=== PATIENT | female | born 1965 | race Caucasian/White ===

== ENCOUNTER 2022-02-05 10:41 | Day surgery (SDC) | payer OTHER ==
[~2022-02-05 10:41] MED LIST: CEFAZOLIN 2 GM-D5W BAG** 2 GM/50 ML ML IV ONE; CEFAZOLIN 2 GM-D5W BAG** 2 GM/50 ML ML IV SCH; Lactated Ringers 1,000 ML IV ONE; Lactated Ringers 1,000 ML IV SCH; XYLOCAINE 1% HCL 20 ML MDV ONE
[2022-02-05] MEDS ORDERED: BRIDION 200MG/2ML IV ONE (12:01)
[2022-02-05] MEDS ORDERED: Xylocaine-Mpf 2% 5 Ml Vial ONE (12:01)
[2022-02-05] MEDS ORDERED: SUBLIMAZE 100 MCG/2 ML ONE ×3 (12:01→15:09)
[2022-02-05] MEDS ORDERED: Zemuron 100 MG/10 ML ONE (12:01)
[2022-02-05] MEDS ORDERED: Decadron 4 MG INJ ONE (12:01)
[2022-02-05] MEDS ORDERED: DIPRIVAN 200 MG/20 ML IV ONE (12:01)
[2022-02-05] MEDS ORDERED: Versed 2 MG/2 ML Injection IV PRN (12:03)
[2022-02-05] MEDS ORDERED: TORAdol 30 mg Injection ONE (12:40)
--- NOTE | 2022-02-05 16:31 | XRAY ---
Indication: Right foot 1st MTP arthrodesis, 2nd-5th hammertoe, 2nd Kristy osteotomy, and tailors bunion correction. Intraoperative fluoroscopy provided for 3 minutes 28 seconds. 15 digital spot images submitted for interpretation ultimately demonstrates 1st MTP fusion, 2nd metatarsal head Kristy osteotomy, fusion 2nd-4th phalanges/MTPs, and osteotomy distal shaft 5th metatarsal all with intact fixation hardware. Correlate with intraoperative findings/report.
--- NOTE | 2022-02-05 16:37 | XRAY ---
3 minutes and 28 seconds of fluoroscopy was used in surgery for a right 1st MPJ arthrodesis, 2nd-5th hammertoe, nella osteotomy 2nd, and tailors bunion correction.
[2022-02-05 18:02] VITALS: BP 145/84; PULSE 79; O2SAT 93
--- NOTE | 2022-02-06 08:50 | OP ---
SURGERY DATE/TIME: 02/05/2022 1224 PREOPERATIVE DIAGNOSES: 1) Osteoarthritis first metatarsophalangeal joint right foot. 2) Hallux abductovalgus right foot. 3) Hammer toe to digits 2, 3, 4 and 5. 4) Tailor's bunion right foot. 5) Ingrown toenail left hallux. POSTOPERATIVE DIAGNOSES: 1) Osteoarthritis first metatarsophalangeal joint right foot. 2) Hallux abductovalgus right foot. 3) Hammer toe to digits 2, 3, 4 and 5. 4) Tailor's bunion right foot. 5) Ingrown toenail left hallux. PROCEDURE: 1) First metatarsophalangeal joint arthrodesis. 2) Kristy osteotomy second metatarsal. 3) Hammer toe correction to digits 2, 3 and 4. 4) Derotational arthroplasty of fifth digit. 5) Tailor's bunion correction fifth metatarsal. SURGEON: Simone Torres DPM. SIZE ROLLER OPERATOR: None. ANESTHESIA: General plus postoperative local block. See injectables for details. HEMOSTASIS: Ankle tourniquet set to 250 mm of Mercury for 120 total tourniquet minutes. ESTIMATED BLOOD LOSS: Less than 20 cc. INJECTABLES: 30 cc total of a 1:1 mixture of 1% lidocaine plain and 0.5% bupivacaine plain injected in ankle block-type fashion preoperatively. INDICATION FOR SURGERY: Lacie is a very pleasant 56-year-old female who presented to my office with significant deformity to the right foot. The patient did have surgical interventions to the left foot which was relatively successful in alleviating her pain. However, there is a significant amount of deformity in her right foot. Following the procedure, she was discouraged from proceeding with surgical intervention due to the deformity that she had despite the pain relief. However at this time, she presented to my office with significant amount of pain to the right foot with ambulation. In particular she had a significant amount of pain due to the crossover deformity and bunion of her first and second digit as well as the hammer toes of digits 3, 4 and 5 with ambulation and shoe gear. She indicates with the tailor's bunion there is significant amount of pain with ambulation and shoe gear choices that she makes. At this time, she indicates that she has tried just about everything and has seen multiple providers for this issue with no consistent relief. The patient at this time is willing to proceed with surgical intervention. No guarantees were provided as to the outcome of surgical intervention. The goal for the procedure is not necessarily cosmetic, it is pain relief and that is the goal of the procedure. The patient understands all risks, benefits and complications of the procedure including but not limited to delayed skin healing, nonskin healing, possibility of nonbone healing and delayed bone healing, potential for need for further surgical intervention at a later date or problem with hardware. The patient understands all of these risks and wishes to proceed at this time. It is with that we proceed. DESCRIPTION OF PROCEDURE AND FINDINGS: The patient was brought into the OR and placed on the OR table in the supine position. At this time general anesthesia was administered until the patient was sedated. A well-padded ankle tourniquet was applied to the patient's right lower extremity. Following this, the right foot was prepped and draped in the typical sterile fashion. Attention then was directed to the dorsal aspect of the first metatarsophalangeal joint. An Esmarch was utilized to superficially exsanguinate the blood vessels at the surface layer of the skin. The tourniquet was set to 250 mm of Mercury. At this time, a linear incision made just medial to the extensor hallucis longus tendon which was carried down utilizing a combination of blunt and sharp dissection dissecting out the extensor hallucis longus and brevis and retracting them out of the way. The capsule then was identified at the first metatarsophalangeal joint which was then incised and the joint was inspected. At this time, a significant amount of osteoarthritis was identified and a K-wire was then introduced along the dorsal longitudinal aspect of the first metatarsophalangeal joint. Cup and conical reamers were utilized to denude the cartilage and the subchondral plate. Copious amounts of sterile saline were utilized to flush the site. Subchondral plate was fenestrated utilizing 2-0 drill bit. Following this, interfragmentary screw was placed across the fusion site as well as a dorsal locking plate this was applied utilizing power and recovery superintendent's recommendation and securing distal holes first eccentric and then filling with lockers and nonlockers in combination this was checked under fluoroscopic guidance and deemed to be in adequate position. Attention then was directed to the dorsal aspect of the second metatarsal where a linear incision was made from 2 cm above the second metatarsal down to the second digit proximal interphalangeal joint. Both joints were resected out and a Kristy osteotomy was performed utilizing a sagittal saw. A displacement Kristy osteotomy was performed displacing the metatarsal head medially in order to bring the second digit into a more normal alignment and rectus in position relative to the longitudinal axis of the second metatarsal this was pinned and two screws were utilized for fixation from this standpoint. A rongeur was utilized to take the overhang of the metatarsal and the proximal interphalangeal joint was resected out and a 2.5 variable compression pitch (VPC) screw 30 mm in length was placed intramedullary in this digit. Following this, this was checked under fluoroscopic guidance and deemed to be in an adequate position. The extensor tendon was lengthened in order to prevent a floating toe. Following this, a K-wire was drilled across the metatarsal head in order to secure the soft tissue position for the digit. Following this, transverse incisions were made over the proximal interphalangeal joints of both digits 3 and 4 where a sagittal saw was utilized to remove the joint surface at these joints. Once again, a 2.5 mm 30 x 30 VPC screw and 28 mm screw were placed intramedullary into digits 3 and 4 respectively this was checked under fluoroscopy and deemed to be once again adequate. K-wires were once again utilized to hold the position in a rectus position relative to the metatarsal position. Following this, distal medial to proximal lateral incision was made in an ellipse-type fashion over the fifth digit to perform a derotational arthroplasty. The joint was resected out and at this time the skin was utilized to perform a derotational arthroplasty of this digit which was checked under fluoroscopy and deemed once again to be adequate. A minimally invasive approach was taken at the fifth metatarsal where the head was resected at its surgical neck shifted medially utilizing a K-wire and then a 1.5 mm plate was introduced into the medullary cavity to hold fixation. Two screws were placed distally and two screws were placed proximally using perfect lac vieux technique and bicortical fixation to hold the plate in its position. Following this copious amounts of sterile saline were utilized to flush the surgical site. Capsular closures were performed utilizing a running buried stitch with 4-0 Monocryl. Subcutaneous tissue was coapted utilizing once again a buried 4-0 Monocryl and then 3-0 Nylon was utilized to coapt the surgical incision utilizing a horizontal mattress-type fashion for the linear incisions and for the digits simple interrupted-type incision closure. The tourniquet was let down prior to this point at 120 tourniquet minutes. An injection consisting of 30 cc of a 1:1 mixture of 1% lidocaine plain and 0.5% bupivacaine plain were injected in ankle block-type fashion. At this time dressings consisting of Betadine, Adaptic, 4x4, Kerlix and LOLI were then applied to the right lower extremity. The patient was then reversed from anesthesia and returned to the postoperative anesthesia care unit with vital signs stable and vascular status intact. The patient handled the procedure as well as the anesthesia without significant complication. Postoperative orders as indicated in the patient's discharge chart.
== END 2022-02-05 17:58 | disposition home or self-care (01) ==
LOC: SDC 10:41
PROVIDERS: ATTEND Podiatrist Foot & Ankle Surgery
DX: M19.071 Primary osteoarthritis, right ankle and foot (principal); M20.5X1 Other deformities of toe(s) (acquired), right foot; M20.41 Other hammer toe(s) (acquired), right foot; M21.621 Bunionette of right foot; L60.0 Ingrowing nail
CPT/HCPCS: 73620; 76000; J0690; J1100; J1885; J2250; J2704; J3010

== ENCOUNTER 2022-03-29 06:06 | Day surgery (SDC) | payer OTHER ==
[2022-03-29] MEDS ORDERED: Lactated Ringers 1,000 ML IV ONE (06:50)
[2022-03-29] MEDS ORDERED: XYLOCAINE 1% HCL 20 ML MDV ONE ×2 (06:50→07:46)
[2022-03-29] MEDS ORDERED: Lactated Ringers 1,000 ML IV SCH (07:30)
[2022-03-29] MEDS ORDERED: CEFAZOLIN 2 GM-D5W BAG** 2 GM/50 ML ML IV SCH (07:30)
[2022-03-29] MEDS ORDERED: Versed 2 MG/2 ML Injection ONE (07:38)
[2022-03-29] MEDS ORDERED: SUBLIMAZE 100 MCG/2 ML ONE (07:38)
[2022-03-29] MEDS ORDERED: DIPRIVAN 200 MG/20 ML IV ONE (07:38)
[2022-03-29] MEDS ORDERED: Xylocaine-Mpf 2% 5 Ml Vial ONE (07:38)
--- NOTE | 2022-03-29 08:57 | XRAY ---
Indication: Right foot hardware removal. Intraoperative fluoroscopy provided for 9 seconds. 3 digital spot images submitted for interpretation demonstrates removal of distal most 5th metatarsal screw. Correlate with intraoperative findings/report.
[2022-03-29 09:06] VITALS: BP 135/90; PULSE 73; O2SAT 97
--- NOTE | 2022-03-29 10:25 | OP ---
SURGERY DATE: 03/29/2022 0756 PREOPERATIVE DIAGNOSES: 1) Painful retained hardware. 2) Pain right foot. POSTOPERATIVE DIAGNOSES: 1) Painful retained hardware. 2) Pain right foot. PROCEDURES: Removal of painful hardware. SURGEON: Simone Torres DPM. CAREER EDUCATION TEACHER: None. ANESTHESIA: Monitored anesthesia care with a preoperative local. HEMOSTASIS: Pressure dressing. ESTIMATED BLOOD LOSS: Less than 1 cc. MATERIALS: 3-0 Nylon. INJECTABLES: 15 cc of a 1:1 mixture of 1% lidocaine plain and 0.5% bupivacaine plain injected in a metatarsal mini-Tinsley block. INDICATION FOR PROCEDURE: Lacie is a very pleasant 56-year-old female who approximately 45 days ago underwent a forefoot reconstruction consisting of a first metaphalangeal joint arthrodesis, hammer correction and bunion correction. The patient did have two traumatic injuries in her postoperative period as she has been somewhat noncompliant with her wearing her postoperative boot. The patient did have a fall that resulted in her falling down two steps and landing on the forefoot of the right foot resulting in some dislodging of the distal hardware to the fifth metatarsal and some pain. The patient was progressing without significant complication. However in the last several days, the patient did have her foot slammed in a car door, according to the patient's subjective history. The patient at this time is in a significant amount of pain and the foot is once again swollen after doing extraordinarily well proceeding the surgical intervention. At this time one of the screws at the distal aspect of the fifth metatarsal had backed out and she wishes to proceed with removal of this hardware. The patient understands all risks, complications and benefits of surgical intervention including but not limited to delayed skin healing, nonskin healing, possibility of residual pain and need for surgical intervention at a later date. The patient understands all of these risks wishes to proceed the operation at this time. DESCRIPTION OF PROCEDURE AND FINDINGS: The patient was brought into the operating room and placed on the operating room table in the supine position. At this time adequate anesthesia was administered. The right foot was prepped and draped in the typical sterile fashion. Attention was directed to the fifth metatarsal. At this time a 15 cc block of a 1:1 mixture of 1% lidocaine plain and 0.5% bupivacaine plain was injected in a mini-Tinsley block-type fashion. Following this under fluoroscopic guidance, a small incision was being careful not to damage any neurovascular structures. The screw head was identified which was removed utilizing a rongeur. Following this, copious amounts of sterile saline were utilized to flush the site. Betadine paint was applied to the foot and a 3-0 Nylon was utilized to coapt the incision. The patient then was reversed from anesthesia. A dressing consisting of Betadine, Adaptic, 4x4, Kerlix and LOLI was applied to the right foot. The patient was returned to the postoperative anesthesia care unit with vital signs stable and vascular status intact. The patient handled the anesthesia as well as the procedure without significant complication. Postoperative orders as indicated in the patient's discharge chart.
--- NOTE | 2022-03-29 12:37 | XRAY ---
9 seconds of fluoroscopy was used in surgery for hardware removal of the right foot.
== END 2022-03-29 09:25 | disposition home or self-care (01) ==
LOC: SDC 06:06
PROVIDERS: ATTEND Podiatrist Foot & Ankle Surgery
DX: T84.84XA Pain due to internal orthopedic prosthetic devices, implants and grafts, initial encounter (principal); M79.671 Pain in right foot
CPT/HCPCS: 20680; 73630; 76000; 76937; J0690; J2250; J2704; J3010

== ENCOUNTER 2022-08-02 07:07 | Day surgery (SDC) | payer OTHER ==
[~2022-08-02 07:07] MED LIST changes: -CEFAZOLIN 2 GM-D5W BAG** 2 GM/50 ML ML IV ONE; -Lactated Ringers 1,000 ML IV ONE; -XYLOCAINE 1% HCL 20 ML MDV ONE
[2022-08-02] MEDS ORDERED: CEFAZOLIN 2 GM-D5W BAG** 2 GM/50 ML ML IV ONE (07:34)
[2022-08-02] MEDS ORDERED: Lactated Ringers 1,000 ML IV ONE (07:34)
[2022-08-02] MEDS ORDERED: Versed 2 MG/2 ML Injection IV PRN (08:45)
[2022-08-02] MEDS ORDERED: Versed 2 MG/2 ML Injection ONE (08:46)
[2022-08-02] MEDS ORDERED: Marcaine Mpf 0.5% Vial 30 Ml ONE (09:15)
[2022-08-02] MEDS ORDERED: Xylocaine 1% Vial 30 ML PF IJ ONE (09:16)
[2022-08-02] MEDS ORDERED: DIPRIVAN 200 MG/20 ML IV ONE (09:41)
[2022-08-02] MEDS ORDERED: Quelicin Fliptop 200 MG/10 ML ONE (09:41)
[2022-08-02] MEDS ORDERED: DEXMEDETOMIDINE 80 MCG/20ML-NS IV ONE (09:41)
[2022-08-02] MEDS ORDERED: Zofran 4 MG/2 ML VIAL ONE (09:41)
[2022-08-02] MEDS ORDERED: Decadron 4 MG INJ ONE (09:41)
[2022-08-02] MEDS ORDERED: Xylocaine-Mpf 2% 5 Ml Vial ONE (09:41)
[2022-08-02] MEDS ORDERED: SUBLIMAZE 100 MCG/2 ML ONE ×2 (09:42→11:12)
[2022-08-02] MEDS ORDERED: Magnesium Sulfate 1 GM/2 ML VIAL ONE (09:56)
[2022-08-02] MEDS ORDERED: Pre-Attached Lta Kit TP ONE (09:56)
[2022-08-02] MEDS ORDERED: OFIRMEV 100 ML IV ONE (09:56)
[2022-08-02] MEDS ORDERED: Ketamine HCl 50 MG/ML ONE (10:01)
[2022-08-02] MEDS ORDERED: Zemuron 100 MG/10 ML ONE (10:36)
[2022-08-02] MEDS ORDERED: Ephedrine Sulfate 50 MG/ML ONE (10:46)
[2022-08-02] MEDS ORDERED: BRIDION 200MG/2ML IV ONE (11:00)
[2022-08-02] MEDS ORDERED: TORAdol 30 mg Injection ONE (11:47)
--- NOTE | 2022-08-02 12:01 | XRAY ---
Indication: Right foot hardware removal and Kristy osteotomy. Intraoperative fluoroscopy provided for 39 seconds. 11 digital spot images submitted for interpretation ultimately demonstrates 2nd/3rd/4th metatarsal head Kristy osteotomy with intact screws. Distal 5th metatarsal hardware removal. Previous fusion 1st MTP with intact fixation plate/screws. Correlate with intraoperative findings/report.
[2022-08-02 13:15] VITALS: BP 137/93; PULSE 75; O2SAT 92
--- NOTE | 2022-08-05 09:26 | OP ---
SURGERY DATE/TIME: 08/02/2022 1046 PREOPERATIVE DIAGNOSES: 1) Painful hardware two separate sites retained hardware right foot. 2) Hammer toe. 3) Metatarsal deformity. 4) Talar bunion. 5) Pain in right foot. POSTOPERATIVE DIAGNOSES: 1) Painful hardware two separate sites retained hardware right foot. 2) Hammer toe. 3) Metatarsal deformity. 4) Talar bunion. 5) Pain in right foot. PROCEDURES: 1) Fifth metatarsal head resection. 2) Removal of hardware fifth metatarsal and second metatarsal separate site. 3) Kristy osteotomy 2, 3 and 4. SURGEON: Simone Torres DPM. DECISION ANALYST: None. ANESTHESIA: General plus a postoperative local block consisting of 30 cc of a 1:1 mixture of 1% lidocaine plain and 0.5% bupivacaine plain injected in an ankle block-type fashion. HEMOSTASIS: Ankle tourniquet set to 200 mm of Mercury for 60 total tourniquet minutes. ESTIMATED BLOOD LOSS: Less than 10 cc. MATERIALS: Serge headed partially threaded screws, 4-0 Monocryl, 3-0 Nylon. INJECTABLES: 30 cc of 1:1 mixture of 1% lidocaine plain and 0.5% bupivacaine plain injected in an ankle block-type fashion postoperatively. INDICATIONS FOR PROCEDURE: Lacie is a very pleasant patient well-known to my service for a reconstruction to her right foot several months ago. The patient did have an improved result. However during her postoperative period she ended up kicking a coffee table resulting in some loss of fixation, some pain and some deviation of the digits medially. As a result, the second and third toe were crossing over the hallux and this caused her a significant amount of pain with ambulation with shoe gear. The patient at this time is still having some residual pain as a result of a talar bunion correction. The patient has not noticed a huge improvement after removing some of the hardware to the right foot. However at this time she is amenable to proceeding with definitive surgery for the talar bunion. The patient understands all risks, benefits and complications of surgical intervention at this time including but not limited to infection, hematoma, seroma, possibility of failure of surgical intervention and possible need for surgical intervention at a later date. The patient understands these risks and wishes to proceed at this time. No guarantees were provided as to the outcome. It is with that we decided to proceed. DESCRIPTION OF PROCEDURE AND FINDINGS: The patient was brought into the OR and placed on the OR table in the supine position. At this time general anesthesia was administered until the patient was sedated. At this time a well-padded ankle tourniquet was applied to the patient's right foot and the right foot was prepped and draped in the typical sterile fashion and lowered onto the surgical field. At this time attention was directed to the fifth metatarsal where a linear incision was made at the dorsal lateral aspect of the fifth metatarsal this was deepened being careful not to damage any neurovascular structures along this way. At this time, the plate for the tailor's bunion was identified and utilizing a screwdriver the plate was removed from the surgical site and handed off the field. At this time the fifth metatarsal head resection was cleared out utilizing sagittal saw with an 18 mm blade. Following this, the tailor's bunion seemed less prominent to the lateral aspect of the foot. The toe was no longer deviated as far inward as it was prior to removal of the metatarsal head. At this time attention was directed to the second, third and fourth metatarsophalangeal joint. Over the second metatarsophalangeal joint, incision was deepened along the same scar from the original procedure this is carried down to the level of the extensor tendon where the extensor tendon Z-lengthening tenotomy was performed and the tendon was retracted out of the way. Two screws were removed from the second metatarsal head at separate site from the second metatarsal head. Following this the capsule was released and a noticeable inclusion in the position of the second toe was identified. At this time Kristy osteotomies were performed in similar fashion to metatarsals two, three and four in order to change the transverse plane translation of the toes. Acceptable position was appreciated following fixation utilizing headed partially threaded compression screws through the site. Following this the extensor tendons were repaired for the second, third and fourth Kristy osteotomy. Copious amounts of sterile saline were utilized to flush the surgical site. 4-0 Monocryl was utilized to coapt the subcutaneous skin edges. 3-0 Nylon was then utilized in a horizontal mattress-type fashion to coapt the skin edges in an everted position. At this point an ankle block was performed utilizing 30 cc of a 1:1 mixture of 1% lidocaine plain and 0.5% bupivacaine plain and a dressing consisting of Betadine, Adaptic, 4x4, Kerlix and LOLI was applied to the patient's right foot. The patient then was reversed from anesthesia and returned to the postoperative anesthesia care unit with vital signs stable and vascular status intact. The patient handled the anesthesia as well as the procedure without significant complication. Postoperative orders as indicated in the patient's discharge chart.
--- NOTE | 2022-08-05 11:06 | XRAY ---
39 seconds of fluoroscopy was used in surgery for a right foot hardware removal and Kristy osteotomy.
== END 2022-08-02 13:35 | disposition home or self-care (01) ==
LOC: SDC 07:07
PROVIDERS: ATTEND Podiatrist Foot & Ankle Surgery
DX: T85.848A Pain due to other internal prosthetic devices, implants and grafts, initial encounter (principal); M20.41 Other hammer toe(s) (acquired), right foot; M21.6X1 Other acquired deformities of right foot; M21.621 Bunionette of right foot; M79.671 Pain in right foot
CPT/HCPCS: 20680; 28110; 28309; 73620; 76000; C1713; J0330; J0690; J1100; J1885; J2001; J2250; J2405; J2704; J3010; J3475

== ENCOUNTER 2023-10-21 06:07 | Day surgery (SDC) | payer OTHER ==
[2023-10-21 06:36] VITALS: RESP 18; TEMP 98.8
[2023-10-21] MEDS: Lactated Ringers 1,000 ML IV SCH (06:37)
[2023-10-21] MEDS: CEFAZOLIN 2 GM-D5W BAG** 2 GM/50 ML ML IV SCH (06:43)
[2023-10-21 06:45] LABS: Hematocrit 37.5 % (35-47); Hemoglobin 12.2 g/dL (12.0-16.0); Mean Cell Volume 88.9 fL (78-100); Mean Corpuscular Hemoglobin 28.9 pg (26-32); Mean Corpuscular Hgb Concent. 32.5 g/dL (32-36); Mean Platelet Volume 10.4 fL (7.5-11.0); Platelet Count 265 x10^3/uL (150-450); Red Blood Count 4.22 x10^6/uL (4.1-5.4); Red Cell Distribution Width 13.5 % (11.5-14.0); White Blood Count 9.1 x10^3/uL (4.0-10.5)
[2023-10-21 06:59] LABS: ALBUMIN 3.9 g/dL (3.5-5.0); ANION GAP 6.3 MEQ/L (5-15); BILIRUBIN,TOTAL 0.8 mg/dL (0.2-1.3); Calcium 8.9 mg/dL (8.4-10.2); Creatinine 1 0.86 mg/dL (0.52-1.04); EST GLOMERULAR FILTRATION RATE 78.3 ML/MIN; Potassium 3.9 mmol/L (3.5-5.1); Total Protein 7.1 g/dL (6.3-8.2)
[2023-10-21 07:08] LABS: INR 0.92 (0.8-3.0); PROTIME 10.1 SECONDS (9.4-12.5); PTT 28.5 SECONDS (25.1-36.5)
[2023-10-21] MEDS ORDERED: Xylocaine 1% Vial 30 ML PF IJ ONE (07:18)
[2023-10-21] MEDS ORDERED: Marcaine Mpf 0.5% Vial 30 Ml ONE (07:18)
[2023-10-21] MEDS ORDERED: Pre-Attached Lta Kit TP ONE (08:28)
[2023-10-21] MEDS ORDERED: OFIRMEV 100 ML IV ONE (08:28)
[2023-10-21] MEDS ORDERED: Quelicin Fliptop 200 MG/10 ML ONE (08:30)
[2023-10-21] MEDS ORDERED: DIPRIVAN 200 MG/20 ML IV ONE ×2 (08:30→10:02)
[2023-10-21] MEDS ORDERED: SUBLIMAZE 100 MCG/2 ML ONE ×2 (08:31→10:45)
[2023-10-21] MEDS ORDERED: Decadron 4 MG INJ ONE (08:31)
[2023-10-21] MEDS ORDERED: ROBINUL ONE (09:21)
[2023-10-21] MEDS ORDERED: Zofran 4 MG/2 ML VIAL ONE (09:43)
[2023-10-21] MEDS ORDERED: TORAdol 30 mg Injection ONE (09:43)
[2023-10-21] MEDS ORDERED: DEXMEDETOMIDINE 80 MCG/20ML-NS IV ONE (10:05)
--- NOTE | 2023-10-21 10:14 | XRAY ---
Indication: Right foot hardware removal and resection fifth metatarsal. Intraoperative fluoroscopy provided for 1 minute 52 seconds. Numerous digital spot images submitted for interpretation demonstrates complete 1st MTP hardware removal and partial resection mid to distal 5th metatarsal. Correlate with intraoperative findings/report.
--- NOTE | 2023-10-21 11:08 | XRAY ---
One minute and 52 seconds of fluoroscopy was used in surgery for a right foot hardware removal and resection fifth metatarsal.
[2023-10-21 12:00] VITALS: BP 151/91; PULSE 69; O2SAT 95
--- NOTE | 2023-10-22 13:22 | OP ---
SURGERY DATE: 10/21/2023 SURGERY TIME: 832 PREOPERATIVE DIAGNOSIS: 1. PAINFUL HARDWARE IN SITU. 2. HETEROTOPIC OSSIFICATION METATARSAL WITH RECURRENCE. 3. PAIN RIGHT FOOT. POSTOPERATIVE DIAGNOSIS: 1. PAINFUL HARDWARE IN SITU. 2. HETEROTOPIC OSSIFICATION METATARSAL WITH RECURRENCE. 3. PAIN RIGHT FOOT. PROCEDURE: 1. Removal of hardware 1st metatarsophalangeal joint, broken 1st metatarsophalangeal Serge plate. 2. Partial resection of metatarsal 5th right foot. 3. Abductor digiti minimi muscle flap for soft tissue coverage. SURGEON: Simnoe Torres D.P.M. MINE UTILITY OPERATOR: None. ANESTHESIA: Monitored anesthesia care with intraoperative ankle blocks consisting of 30 cc of a 1:1 mixture of 1% Lidocaine plain and 0.5% Bupivicaine plain. HEMOSTASIS: A thigh tourniquet set to 300 mm Hg for a total of 30 total tourniquet minutes. ESTIMATED BLOOD LOSS: Approximately 3 cc. INJECTABLES: 30 cc of a 1:1 mixture of 1% Lidocaine plain and 0.5% Bupivicaine plain injected in an ankle block type fashion. 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 During her immediate postoperative period, patient did have multiple issues where she had trauma to the extremity resulting in need for some revision. Most notably, patient did have a revision to the 5th metatarsal where a previous partial metatarsal resection secondary to heterotopic ossification occurred as well as some deviation in her digits as a result of the trauma. Since then, the patient has had an additional subsequent trauma where she kicked a coffee table. Since then, she has been having some pain over the dorsal aspect of the 1st metatarsophalangeal joint. Being that this was 2 years ago, there was some suspicion for irritating hardware or possible non-union of the 1st metatarsophalangeal joint. On inspection of x-rays, there does seem to have been a fracture of the distal aspect of the 1st metatarsophalangeal joint plate. Typically in these situations, we discuss with patient that there is likely a non-union secondary to motion in that location. Given the fact that the plate broke and if the plate broke, there is likely some evidence of a non-union of the arthrodesis site. We discussed also performing a procedure to prevent heterotopic ossifications by using bone wax at the 5th metatarsal once resected and then utilizing her abductor digiti minimi muscle to flap over the bone to prevent any irritation with this structure again as this is the second recurrence she has had of the heterotopic ossifications. Patient is amenable to proceeding with surgical intervention at this time. The patient understands all risks, complications, and benefits of surgical intervention including, but not limited to, infection; hematoma/seroma; possibility of delayed wound healing; non-wound healing; and possible need for further surgical intervention at a later date. No guarantees were provided as to the outcome. Plenty of time was allowed for the patient to ask questions which were answered to her apparent satisfaction. It is at this time we decided to proceed. DESCRIPTION OF PROCEDURE: The patient was brought into the OR. Placed on the OR table in the supine position at this time. General anesthesia was administered until the patient was adequately sedated. A well-padded thigh tourniquet was applied and the tourniquet was set to 300 mm Hg. At this time, the right lower extremity was prepped and draped in the typical sterile fashion and lowered onto the surgical field. Attention was directed to the dorsal aspect of the 1st metatarsophalangeal joint where a linear incision was carried down to the level of the plate being careful not to damage any neurovascular structures. The extensor hallucis longus tendon was retracted out of the way. Once resected, a significant amount of scar tissue was encountered and the plate was removed utilizing the appropriate motor driver. From that standpoint, under fluoroscopic guidance, stress views were applied to the 1st metatarsophalangeal joint and seemingly was stable. On lateral and AP view, there was no motion assessed to these locations deeming this a solid fusion. At this time, for further inspection, a freer was attempted to be passed from the top of the joint into the arthrodesis site which I was unable to do so. The decision was made to forego the revision of the 1st metatarsophalangeal joint arthrodesis as there was a solid arthrodesis and likely irritation was deemed due to broken hardware. From that standpoint, a new linear incision was made over the dorsal aspect of the 5th metatarsal. Partial bone was resected. This was rasped utilizing a hand rasp to smooth down the edges. This was cleansed with copious amounts of sterile saline and then bone wax was applied to the resected margin. Following this, an abductor digiti minimi muscle flap was harvested and wrapped around to the periosteum of the bone to add more tissue bulk to this area. Following this, this was stitched utilizing 2-0 Vicryl. 4-0 Monocryl was utilized to coapt the subcutaneous edges in a simple interrupted buried type fashion. 3-0 Nylon was then utilized to coapt the skin edges in a horizontal mattress type fashion. Following this, dressing consisting of Betadine, Adaptic, 4 X 4, Kerlix, and Chapin was applied to the patient's right lower extremity. The patient was then reversed from anesthesia and returned to the PACU with vital signs stable and vascular status intact. The patient handled the anesthesia as well as the procedure without significant complication. Postoperative orders as indicated in the patient's discharge chart.
== END 2023-10-21 11:39 | disposition home or self-care (01) ==
LOC: SDC 06:07
PROVIDERS: ATTEND Podiatrist Foot & Ankle Surgery
DX: T84.84XA Pain due to internal orthopedic prosthetic devices, implants and grafts, initial encounter (principal); M79.671 Pain in right foot; M61.472 Other calcification of muscle, left ankle and foot
CPT/HCPCS: 15738; 20680; 28122; 36415; 73630; 76000; 80053; 85027; 85610; 85730; J0330; J0690; J1100; J1885; J2001; J2405; J2704; J3010

== ENCOUNTER 2023-11-28 09:24 | Emergency (ER) | payer OTHER ==
[2023-11-28 09:33] VITALS: TEMP 98.9
--- NOTE | 2023-11-28 09:46 | ERPHSYRPT ---
- History of Present Illness Time Seen by Provider: 11/28/23 09:35 Source: patient Exam Limitations: no limitations Patient Subjective Stated Complaint: PT HERE FOPR SWELLING TO LEFT SIDE OF FACE FOR 2 DAYS NOW, SHE HAS BROKEN TOOTH ON THAT SIDE Triage Nursing Assessment: PT ALERT, WALKED IN. RESP EASY, SKIN W/D/P, HAS SWELLING TO RIGHT SIDE OF FACE AND UNDER LEFT EYE, HAS DECAYED TEETH Physician History: This is a 58-year-old overweight white female patient who presents with 2-day history of worsening left facial pain and swelling. She was not aware that she had upper molar fractures and generalized poor dentition. In the last 2 days she took a total of 4 clindamycin pills that she received from a friend. She generally has not felt well. She did not measure a temperature. Timing/Duration: gradual onset Severity: moderate Prearrival Treatment: prescription meds (From a friend she obtain clindamycin pills) Modifying Factors: Improves With: nothing Associated Symptoms: facial pain/swelling (Left side), tooth pain (Left upper molars), No neck pain, No sore throat, No difficulty swallowing, No voice change Allergies/Adverse Reactions: No Known Drug Allergies Allergy (Verified 11/28/23 09:28) Home Medications: Gabapentin [Neurontin] 800 mg PO TID 02/05/22 [History] Diclofenac Sodium 50 mg [Voltaren 50 mg] 100 mg PO DAILY 08/02/22 [History] Daridorexant HCl [Quviviq] 25 mg PO HS 10/21/23 [History] Hx Tetanus, Diphtheria Vaccination/Date Given: Yes (4 years ago) Hx Influenza Vaccination/Date Given: No Hx Pneumococcal Vaccination/Date Given: No Immunizations Up to Date: Yes Travel Risk - International Travel Have you traveled outside of the country in past 3 weeks: No - Emerging Infectious Disease Are you exhibiting symptoms associated with any current EIDs: No - Review of Systems Constitutional: No Symptoms Eyes: No Symptoms Ears, Nose, & Throat: Other (Left upper molar dental pain) Respiratory: No Symptoms Cardiac: No Symptoms Abdominal/Gastrointestinal: No Symptoms Genitourinary Symptoms: No Symptoms Musculoskeletal: No Symptoms Skin: No Symptoms Neurological: No Symptoms Psychological: No Symptoms Endocrine: No Symptoms Hematologic/Lymphatic: No Symptoms Immunological/Allergic: No Symptoms All Other Systems: Reviewed and Negative - Past Medical History Pertinent Past Medical History: Yes Neurological History: No Pertinent History ENT History: No Pertinent History Cardiac History: No Pertinent History Respiratory History: No Pertinent History Endocrine Medical History: No Pertinent History Musculoskeletal History: Arthritis GI Medical History: No Pertinent History History: No Pertinent History Psycho-Social History: Bipolar, Depression Female Reproductive Disorders: No Pertinent History Other Medical History: CHRONIC NECK PAIN - Past Surgical History Past Surgical History: Yes Neuro Surgical History: No Pertinent History Cardiac: No Pertinent History Respiratory: No Pertinent History Gastrointestinal: No Pertinent History Genitourinary: No Pertinent History Musculoskeletal: Orthopedic Surgery Female Surgical History: No Pertinent History Other Surgical History: spine,ankle,knee and foot,plates pins screws fusion, total left knee replacement 04/15/2022,FOOT SURG 2023 - Social History Smoking Status: Light tobacco smoker How long have you smoked: 34 yrs Exposure to second hand smoke: Yes Drug Use: none Patient Lives Alone: No - Nursing Vital Signs Nursing Vital Signs: Initial Vital Signs Pulse Rate 70 11/28/23 09:31 Respiratory Rate 18 11/28/23 09:31 Blood Pressure 153/90 11/28/23 09:31 O2 Sat by Pulse Oximetry 98 11/28/23 09:31 Pain Scale Pain Intensity 7 - Physical Exam General Appearance: no apparent distress, alert, anxiety Eye Exam: bilateral eye: normal inspection, PERRL, EOMI Ear Exam: bilateral ear: auricle normal, canal normal, TM normal Nasal Exam: normal inspection Throat Exam: pharynx normal, dental tenderness (Left upper molars), maxillary swelling, No voice changes Neck Exam: normal inspection, non-tender, supple, full range of motion Cardiovascular/Respiratory Exam: chest non-tender, no respiratory distress Abdominal Exam: non-tender Neurologic Exam: alert, oriented x 3, cooperative, collar fuser II-XII nml as tested, normal mood/affect, nml cerebellar function, nml station & gait, sensation nml Skin Exam: other (Left facial swelling present) SpO2 Interpretation: borderline oxygenation SpO2: 94 O2 Delivery: Room Air - Course Nursing assessment & vital signs reviewed: Yes Ordered Tests: Active Orders 24 hr Category Date Time Status FACIAL BONES WO CONTRAST [CT] Stat Exams 11/28/23 09:37 Completed Medication Summary Discontinued Medications Generic Name Dose Route Start Last Admin Trade Name Freq PRN Reason Stop Dose Admin Ceftriaxone Sodium 1,000 mg 11/28/23 11:17 Ceftriaxone Sodium 1000 Mg Inj Vial IM 11/28/23 11:18 STAT ONE Methylprednisolone Sodium 0 mg 11/28/23 11:17 Succinate 125 mg/ Sterile IM 11/28/23 11:18 Water 2 ml STAT ONE - Progress Progress: unchanged Progress Note: 11/28/23 09:45 My medical decision making and the assignment of low to moderate complexity of this patient's medical issue is based on review of the patient's past medical history, review of the patient's medication list, review patient drug allergy list, history present illness and physical findings on examination. The workup in this patient includes CT scan of the face to evaluate for presence of drainable abscess. Differential diagnosis includes facial abscess, infected dental caries, facial cellulitis 11/28/23 11:22 CT scan of the face without contrast was interpreted by the radiologist and I reviewed the impression. The impression states left facial and left jaw soft tissue swelling without focal solid or cystic mass. Counseled pt/family regarding: diagnosis, need for follow-up, rad results Medical Desision Making - Diagnostic Testing Diagnostic test were ordered, analyzed, and reviewed by me: Yes Radiological Interpretation: Reviewed by me, Teleradiologist Report - Risk of complications The pt has a mod risk of morbidity or mortality based on: Need for prescription drug management - Departure Departure Disposition: Home Clinical Impression: Facial cellulitis Condition: Stable Critical Care Time: No Referrals: AYAN FAIRBANKS MD [Primary Care Provider] - Follow up/PCP as directed Additional Instructions: Drink plenty of fluids. Take your medication as prescribed. Call a dentist today, 11/28/2023, to make a follow-up appointment for further evaluation and definitive care and to be seen in the next 5 to 7 days. Stop your Voltaren. You may resume your Voltaren after you complete the prednisone treatment Prescriptions: Oxycodone HCl/Acetaminophen [Percocet 5-325 mg Tablet] 1 each PO Q8H PRN PRN #6 tablet MDD 3 PRN Reason: Moderate To Severe Pain Amoxicillin/Potassium Clav [Augmentin 500-125 Tablet] 1 each PO TID 7 Days #21 tablet Prednisone 10 mg [Deltasone 10 mg] 10 mg PO TID #12 tablet
[2023-11-28 11:08] VITALS: BP 120/46
--- NOTE | 2023-11-28 11:18 | XRAY ---
Indication: Left facial swelling 4 days. No known injury. Multiple contiguous axial images obtained through the facial bones without contrast as ordered. Sagittal and coronal reformatted images obtained. Comparison: None A few bilateral the tomograms produces beam artifact. Mild left jaw and left facial soft tissue swelling without focal solid/cystic mass or emphysema. Scattered centimeter/subcentimeter cervical and submandibular lymph nodes bilaterally, none pathologically enlarged. Enlarged palatine tonsils narrows the oropharynx. No acute fracture, suspicious bony lesions, or osseous destructive process. Visualized cervical spine intact with multilevel degenerative spondylosis and incompletely visualized C6-C7 anterior fusion hardware. Mild mucosal thickening both ethmoid and lesser degree both maxillary sinuses without fluid leveling. Orbits and base of brain unremarkable. Impression: 1. Left facial and left jaw soft tissue swelling without focal solid/cystic mass. Rule out inflammatory/infectious process versus recent injury. 2. Incidental enlarged palatine tonsils, multilevel degenerative spondylosis, and paranasal sinus disease.
[2023-11-28 11:21] VITALS: PULSE 104; RESP 18
[2023-11-28] MEDS ORDERED: Sterile H2O 10 ml IJ ONE (11:25)
[2023-11-28] MEDS ORDERED: XYLOCAINE 1% HCL 20 ML MDV ONE (11:25)
[2023-11-28] MEDS ORDERED: Rocephin 1000 MG INJ ONE (11:25)
[2023-11-28] MEDS ORDERED: solu-MEDROL ONE (11:25)
[2023-11-28] MEDS: solu-MEDROL 125 MG, Sterile H2O 10 ml 2 ML IM ONE (11:26)
[2023-11-28 11:27] VITALS: O2SAT 94
[2023-11-28] MEDS: Rocephin 1000 MG INJ IM ONE (11:27)
== END 2023-11-28 11:53 | disposition home or self-care (01) ==
LOC: ED 09:24
DX: L03.211 Cellulitis of face (principal); Z79.891 Long term (current) use of opiate analgesic; Z79.52 Long term (current) use of systemic steroids; Z79.899 Other long term (current) drug therapy; Z72.0 Tobacco use
CPT/HCPCS: 70486; 96372; 99283; J0696; J2919